=== PATIENT | male | born 1960 | race African-American/Black ===

== ENCOUNTER 2017-01-02 17:22 | Emergency (ER) | payer OTHER, MEDICAID ==
[~2017-01-02] VITALS: Ht 165.1 cm; Wt 111.1 kg
[~2017-01-02 17:22] MED LIST: AMLODIPIN; ASPIR 8181 M1 PO; ASPIRIN; AUGMENTIN 875 M1 TAB PO; BACTRIM DS 800/1 TAB PO; ENALAPRIL; ENALAPRIL10 M1 PO; FLEXERIL10 MG PO; HUMALOG PEN100 U/ML SC; INVOKANA300 MG PO; LANTUS INSULIN; LANTUS100 U/ML SC; LASIX; LASIX20 M1 PO; LOPRESSOR; METFORMIN; METFORMIN HCL1000 MG PO; METOPROLOL SUCC PO; NORVASC10 M1 PO; REGLAN10 MG PO; RESTASIS0.05% OP; SIMVASTATIN; SIMVASTATIN80 MG PO; SYSTANE LUBRICAN5 ML OP; TRAMADOL HYDROC50 MG PO; VICTOZA6 MG/ML SUBQ; ZOFRAN4 M1 PO
[2017-01-02 18:24] VITALS: BP 136/76
--- NOTE | 2017-01-02 18:55 | NUR ---
PATIENT PRESENTS TO ED WITH RIGHT FLANK PAIN RADIATING LOWER BACK PAIN . PT STATES POLYURIA . DENIES N/V/D; SKIN IS PINK/WARM/DRY; AAOX4 WITH EVEN AND STEADY GAIT; LUNGS CLEAR BL; HR EVEN AND REGULAR; PT DENIES ANY FEVER, CP, SOB, OR COUGH AT THIS TIME; PATIENT STATES PAIN OF 10/10 AT THIS TIME; VSS; PATIENT POSITIONED FOR COMFORT; HOB ELEVATED; BEDRAILS UP X2; BED DOWN. ER MD MADE AWARE OF PT STATUS.
[2017-01-02] MEDS ORDERED: KETOROLAC 60 MG/2 ML VIAL IM ONE ×4 (19:00→19:50)
--- NOTE | 2017-01-02 19:20 | NUR ---
RECEIVED REPORT FROM AM NURSE. PT STABLE NO S/S OF DISTRESS NOTED AT THIS MOMENT.
[2017-01-02 20:13] VITALS: BP 128/78
--- NOTE | 2017-01-02 20:13 | NUR ---
Patient discharged with v/s stable. Written and verbal after care instructions given and explained. Patient alert, oriented and verbalized understanding of instructions. Ambulatory with steady gait. All questions addressed prior to discharge. ID band removed. Patient advised to follow up with PMD OR RETURN TO ER IF CONDITION GETS WORSE. Rx of NORCO, AND SOMA given. Patient educated on indication of medication including possible reaction and side effects. Opportunity to ask questions provided and answered.
== END 2017-01-02 20:13 | disposition home or self-care (01) ==
LOC: MED 17:22
DX: M54.31 Sciatica, right side (principal); M54.6 Pain in thoracic spine; E11.9 Type 2 diabetes mellitus without complications; I10 Essential (primary) hypertension; Z79.82 Long term (current) use of aspirin; Z79.4 Long term (current) use of insulin; Z79.899 Other long term (current) drug therapy
CPT/HCPCS: 81002; 82948; 96372; 99283; J1885

== ENCOUNTER 2017-03-21 18:45 | Emergency (ER) | payer OTHER, MEDICAID ==
[~2017-03-21] VITALS: Ht 165.1 cm; Wt 108.4 kg
[~2017-03-21 18:45] MED LIST changes: -AMLODIPIN; +ASPI81EC98 PO; -ASPIR 8181 M1 PO; -ASPIRIN; -AUGMENTIN 875 M1 TAB PO; -BACTRIM DS 800/1 TAB PO; +CANA300T PO; +CYCL-405 PO; +ENAL10TA41 PO; -ENALAPRIL; -ENALAPRIL10 M1 PO; -FLEXERIL10 MG PO; -HUMALOG PEN100 U/ML SC; -INVOKANA300 MG PO; -LANTUS INSULIN; -LANTUS100 U/ML SC; -LASIX; -LASIX20 M1 PO; +LIRA6SOL SUBQ; -LOPRESSOR; +METF10002 PO; -METFORMIN; -METFORMIN HCL1000 MG PO; +METO-460 PO; -METOPROLOL SUCC PO; -NORVASC10 M1 PO; +ONDA4TAB PO; -REGLAN10 MG PO; -RESTASIS0.05% OP; -SIMVASTATIN; -SIMVASTATIN80 MG PO; -SYSTANE LUBRICAN5 ML OP; -TRAMADOL HYDROC50 MG PO; -VICTOZA6 MG/ML SUBQ; -ZOFRAN4 M1 PO; +[UNRECOGNIZED DRUG - CODE] SC
[2017-03-21 18:48] VITALS: BP 120/75
--- NOTE | 2017-03-21 19:02 | NUR ---
Patient ambulated to bed 6. RN evaluating patient at bedside.
--- NOTE | 2017-03-21 19:19 | NUR ---
56Y M BIB FAMILY C/O VOMIT X 6 DAYS. PT STATES HE CANNOT KEEP ANYTHING DOWN. AB IS TENDER ON TOUCH WITH C/O OF NAUSEA, NO DIARRHEA. 6/10 PAIN. HX DM AND NKA
[2017-03-21] MEDS ORDERED: NACL 0.9% 1,000 ML IV ONE (19:28)
[2017-03-21] MEDS ORDERED: ONDANSETRON 4 MG/2 ML VIAL IVP ONE (19:30)
[2017-03-21 20:19] LABS: ALBUMIN 3.8 g/dL (3.4-5.0); ANION GAP 9.9 (8-16); CARBON DIOXIDE 30.8 mmol/L (21-32); CREATININE 0.9 mg/dL (0.6-1.3); POTASSIUM 3.7 mmol/L (3.5-5.1); TOTAL BILIRUBIN 0.4 mg/dL (0.0-1.0); TOTAL PROTEIN, SERUM 7.3 g/dL (6.4-8.2)
--- NOTE | 2017-03-21 20:41 | NUR ---
IV removed, catheter intact and site benign. Applied folded 4x4 gauze and tape to stop bleeding.
[2017-03-21 20:47] VITALS: BP 122/76
--- NOTE | 2017-03-21 20:47 | NUR ---
Patient discharged with v/s stable. Written and verbal after care instructions given and explained. Patient alert, oriented and verbalized understanding of instructions. Ambulatory with steady gait. All questions addressed prior to discharge. ID band removed. Patient advised to follow up with PMD. Rx of BENTYL 20MG AND ZOFRAN 4MG ODT given. Patient educated on indication of medication including possible reaction and side effects. Opportunity to ask questions provided and answered.
== END 2017-03-21 20:47 | disposition home or self-care (01) ==
LOC: MED 18:45
DX: R11.2 Nausea with vomiting, unspecified (principal); R19.7 Diarrhea, unspecified; R10.13 Epigastric pain; E11.9 Type 2 diabetes mellitus without complications
CPT/HCPCS: 36415; 80053; 82948; 83690; 96361; 96374; 99284; J2405; J7030

== ENCOUNTER 2018-11-05 09:06 | Emergency (ER) | payer OTHER, MEDICAID ==
[~2018-11-05] VITALS: Ht 165.1 cm; Wt 104.8 kg
[~2018-11-05 09:06] MED LIST changes: +ENAL10TA21 PO; -ENAL10TA41 PO; -METF10002 PO; +[UNRECOGNIZED DRUG - CODE] PO
[2018-11-05 09:23] VITALS: BP 133/82
--- NOTE | 2018-11-05 09:33 | NUR ---
PT AMBULATES TO BED 1
--- NOTE | 2018-11-05 09:40 | NUR ---
PT. CAME INTO THE ED W/ C/O EXACERBATED RIGHT SIDED LOWER BACK PAIN X 3 DAYS DENIES RECENT INJURY--DENIES INCONTINENCE ---HAS BEEN APPLYING HEATING CREAM ONTO SITE WITH MINIMAL RELIEF. 08/22 SHARP CONSTANT PAIN IN R LOWER BACK THAT IS NON RADIAITING. ER MADE AWARE. WILL CONTINUE TO MONITOR. SON AT BEDSIDE. SAFETY PRECAUTIONS IN PLACE
[2018-11-05] MEDS ORDERED: MORPHINE SULFATE 4 MG/ML SYR IM ONE (10:40)
[2018-11-05 11:11] VITALS: BP 133/82
--- NOTE | 2018-11-05 11:12 | NUR ---
Patient discharged with v/s stable. Written and verbal after care instructions given and explained. Patient verbalized understanding. Ambulatory with steady gait. All questions addressed prior to discharge. Advised to follow up with PMD.
== END 2018-11-05 11:07 | disposition home or self-care (01) ==
LOC: MED 09:06
DX: M54.41 Lumbago with sciatica, right side (principal); E11.9 Type 2 diabetes mellitus without complications; I10 Essential (primary) hypertension; Z79.82 Long term (current) use of aspirin; Z79.899 Other long term (current) drug therapy
CPT/HCPCS: 82948; 96372; 99283; J2270

== ENCOUNTER 2019-06-13 08:20 | Emergency (ER) | payer OTHER, MEDICAID ==
[~2019-06-13] VITALS: Ht 172.7 cm; Wt 105.2 kg
[~2019-06-13 08:20] MED LIST changes: -ENAL10TA21 PO; +METF-1022 PO; +VAS10 PO; -[UNRECOGNIZED DRUG - CODE] PO
[2019-06-13 08:24] VITALS: BP 130/76
--- NOTE | 2019-06-13 08:28 | NUR ---
PT AMB TO BED 4 WITH STEADY GAIT
[2019-06-13] MEDS ORDERED: KETOROLAC 60 MG/2 ML VIAL IM ONE (08:40)
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
[2019-06-13 09:20] VITALS: BP 125/71
== END 2019-06-13 09:20 | disposition home or self-care (01) ==
LOC: MED 08:20
DX: R07.89 Other chest pain (principal); E11.9 Type 2 diabetes mellitus without complications; I10 Essential (primary) hypertension; F12.10 Cannabis abuse, uncomplicated; Z98.890 Other specified postprocedural states; Z79.84 Long term (current) use of oral hypoglycemic drugs; Z79.82 Long term (current) use of aspirin; Z79.899 Other long term (current) drug therapy
CPT/HCPCS: 93005; 96372; 99283; J1885

== ENCOUNTER 2020-08-19 05:55 | Emergency (ER) | payer OTHER, MEDICAID ==
[~2020-08-19] VITALS: Ht 165.1 cm; Wt 104.3 kg
[2020-08-19 06:09] VITALS: BP 128/71
--- NOTE | 2020-08-19 06:11 | NUR ---
To ED bed 01
--- NOTE | 2020-08-19 06:15 | NUR ---
PT HAS HAD N/V SINCE MONDAY. HAS MULITIPLE EPISODES OF VOMITING DAILY, WHENEVER HE EATS SOMETHING IT COMES RIGHT BACK UP. DENIES DIARRHEA, AFEBRILE, NO ABD PAIN. DENIES SOB. BED IN LOWEAT POSITION AND SIDERAIL UP X 1. PT ON BEDSIDE MONITOR. JOSE HX - DM
--- NOTE | 2020-08-19 06:18 | NUR ---
Dr. Phelps assessing pt.
[2020-08-19] MEDS: ONDANSETRON 4 MG/2 ML VIAL IVP ONE (06:43)
[2020-08-19] MEDS: NACL 0.9% 1,000 ML IV ONE (06:43)
[2020-08-19] MEDS: FAMOTIDINE 20 MG/2 ML VIAL IVP ONE (06:44)
--- NOTE | 2020-08-19 07:25 | NUR ---
Dr. Jesus is evaluating the patient at bedside.
--- NOTE | 2020-08-19 07:26 | NUR ---
Jozef benedict in [place] - 08/19/20 at 0731 by [email or web address] REPORT GIVEN TO YOLA KATZ
--- NOTE | 2020-08-19 07:31 | NUR ---
REPORT GIVEN TO ALISA KATZ FOR CONTINUATION OF CARE
[2020-08-19 07:56] LABS: HEMOGLOBIN 14.2 g/dL (12.0-18.0)
[2020-08-19 08:00] VITALS: BP 126/68
--- NOTE | 2020-08-19 08:01 | NUR ---
Patient discharged with v/s stable. Written and verbal after care instructions given and explained. Patient alert, oriented and verbalized understanding of instructions. Ambulatory with steady gait. All questions addressed prior to discharge. ID band removed. Patient advised to follow up with PMD. Rx of zofran,pepcid given. Patient educated on indication of medication including possible reaction and side effects. Opportunity to ask questions provided and answered.
[2020-08-19 08:09] LABS: BASOPHILS # (AUTO) 0.1 K/uL (0.00-0.22); BASOPHILS % (AUTO) 1.1 % (0.0-2.0); EOSINOPHILS # (AUTO) 0.1 K/uL (0-0.4); HEMATOCRIT 42.7 % (36-52); LYMPHOCYTES # (AUTO) 1.2 K/uL (2.0-11.5); LYMPHOCYTES % (AUTO) 13.2 % (20.5-51.1); MEAN CORPUSCULAR HEMOGLOBIN 28 pg (27-31); MEAN CORPUSCULAR HGB CONC 33 g/dL (33-37); MONOCYTES # (AUTO) 0.6 K/uL (0.8-1.0); MONOCYTES % (AUTO) 7.2 % (1.7-9.3); NEUTROPHILS # (AUTO) 6.9 K/uL (1.8-7.7); NEUTROPHILS % (AUTO) 77.5 % (42.2-75.2); PLATELET COUNT (AUTO) 207 K/uL (140-450); RED BLOOD CELL COUNT(AUTO) 5.08 MIL/uL (4.20-6.10); RED CELL DISTRIBUTION WIDTH 15.7 % (11.6-13.7); WHITE BLOOD COUNT (AUTO) 8.9 K/uL (4.8-10.8)
[2020-08-19 08:18] LABS: ALBUMIN 3.6 g/dL (3.4-5.0); ANION GAP 14.3 (8-16); CARBON DIOXIDE 26.6 mmol/L (21-32); CREATININE 0.7 mg/dL (0.6-1.3); POTASSIUM 3.9 mmol/L (3.5-5.1); TOTAL BILIRUBIN 0.3 mg/dL (0.0-1.0)
== END 2020-08-19 08:01 | disposition home or self-care (01) ==
LOC: MED 05:55
DX: K29.70 Gastritis, unspecified, without bleeding (principal); E11.9 Type 2 diabetes mellitus without complications; Z79.899 Other long term (current) drug therapy
CPT/HCPCS: 36415; 80053; 82948; 83690; 85025; 93005; 96361; 96374; 96375; 99284; J2405; J3490; J7030

== ENCOUNTER 2020-08-26 06:07 | Emergency (ER) | payer OTHER, MEDICAID ==
[~2020-08-26] VITALS: Ht 165.1 cm; Wt 104.3 kg
[2020-08-26 06:10] VITALS: BP 121/63
--- NOTE | 2020-08-26 06:16 | NUR ---
PT TAKEN TO BED 4
--- NOTE | 2020-08-26 06:18 | NUR ---
Dr. Snow examining patient.
--- NOTE | 2020-08-26 06:19 | NUR ---
59 Y/O MALE PRESENTS TO ER WITH C/O BURNING EPIGASTRIC PAIN X 1 WEEK. 9/10 PAIN. PT STATES EVERY TIME HE SWALLOWS, RELUX FOLLOWS. LAST VOMIT WAS 08/25/20 @ 2300. DENIES NAUSEA, DIARRHEA, SOB, COUGH. A&O X4, VSS, R/R EQUAL, AND UNLABORED, VSS. SIDE RAIL X1, BED IN LOW POSITION, WILL CONTINUE TO MONITOR. NKDA PMH: CIERRA
[2020-08-26] MEDS ORDERED: ALUMINUM HYD/MAG/SIMETHICONE 30 ML UDC PO ONE (06:25)
[2020-08-26] MEDS ORDERED: LIDOCAINE VISCOUS 2% 20 ML UDC PO ONE (06:25)
[2020-08-26] MEDS ORDERED: PANTOPRAZOLE 40 MG TABEC PO ONE (06:25)
[2020-08-26] MEDS ORDERED: DICYCLOMINE HCL LIQUID 10 MG/5 ML UDC PO ONE (06:25)
[2020-08-26 07:07] VITALS: BP 121/63
--- NOTE | 2020-08-26 07:08 | NUR ---
Patient discharged with v/s stable. Written and verbal after care instructions given and explained. Patient alert, oriented and verbalized understanding of instructions. Ambulatory with steady gait. All questions addressed prior to discharge. ID band removed. Patient advised to follow up with PMD. Rx of PROTONIX given. Patient educated on indication of medication including possible reaction and side effects. Opportunity to ask questions provided and answered.
== END 2020-08-26 07:08 | disposition home or self-care (01) ==
LOC: MED 06:07
DX: K21.9 Gastro-esophageal reflux disease without esophagitis (principal); E11.9 Type 2 diabetes mellitus without complications; I10 Essential (primary) hypertension; Z79.899 Other long term (current) drug therapy
CPT/HCPCS: 93005; 99283; 99284

== ENCOUNTER 2021-01-17 20:16 | Emergency (ER) | payer OTHER, MEDICAID ==
[~2021-01-17] VITALS: Ht 165.1 cm; Wt 102.1 kg
[2021-01-17 20:19] VITALS: BP 167/90
[2021-01-17] MEDS ORDERED: ASPIRIN 325 MG TAB PO ONE (21:05)
[2021-01-17 21:23] LABS: BASOPHILS # (AUTO) 0.1 K/uL (0.00-0.22); BASOPHILS % (AUTO) 1.1 % (0.0-2.0); EOSINOPHILS # (AUTO) 0.2 K/uL (0-0.4); EOSINOPHILS % (AUTO) 1.9 % (0.0-4.0); HEMOGLOBIN 13.4 g/dL (12.0-18.0); LYMPHOCYTES # (AUTO) 1.9 K/uL (2.0-11.5); LYMPHOCYTES % (AUTO) 19.2 % (20.5-51.1); MEAN CORPUSCULAR HEMOGLOBIN 28 pg (27-31); MEAN CORPUSCULAR HGB CONC 33 g/dL (33-37); MEAN CORPUSCULAR VOLUME 85.2 fL (80-94); MONOCYTES # (AUTO) 0.5 K/uL (0.8-1.0); MONOCYTES % (AUTO) 5.5 % (1.7-9.3); NEUTROPHILS % (AUTO) 72.3 % (42.2-75.2); PLATELET COUNT (AUTO) 237 K/uL (140-450); RED BLOOD CELL COUNT(AUTO) 4.81 MIL/uL (4.20-6.10); RED CELL DISTRIBUTION WIDTH 15.5 % (11.6-13.7); WHITE BLOOD COUNT (AUTO) 9.7 K/uL (4.8-10.8)
[2021-01-17 21:30] LABS: ANION GAP 12.8 (8-16); CARBON DIOXIDE 26.3 mmol/L (21-32); CREATININE 0.6 mg/dL (0.6-1.3); POTASSIUM 4.1 mmol/L (3.5-5.1)
[2021-01-18 00:30] VITALS: BP 156/88
== END 2021-01-18 00:30 | disposition home or self-care (01) ==
LOC: MED 20:16
DX: R07.89 Other chest pain (principal); Z20.822 Contact with and (suspected) exposure to COVID-19; E11.9 Type 2 diabetes mellitus without complications; I10 Essential (primary) hypertension; Z79.84 Long term (current) use of oral hypoglycemic drugs; Z79.82 Long term (current) use of aspirin; Z79.899 Other long term (current) drug therapy
CPT/HCPCS: 36415; 71045; 80048; 84484; 85025; 93005; 99285

== ENCOUNTER 2021-06-15 08:04 | Emergency (ER) | payer OTHER, MEDICAID ==
[~2021-06-15] VITALS: Ht 165.1 cm; Wt 104.3 kg
[~2021-06-15 08:04] MED LIST changes: -CYCL-405 PO; +CYCL-711 PO
--- NOTE | 2021-06-15 09:54 | NUR ---
ambulated to chair c
--- NOTE | 2021-06-15 10:01 | NUR ---
DR SAHU EVALUATING PT
[2021-06-15] MEDS ORDERED: ACETAMINOPHEN EXTRA STRENGTH 500 MG TAB PO ONE (10:05)
[2021-06-15] MEDS ORDERED: KETOROLAC 30 MG/ML VIAL IM ONE (10:05)
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
[2021-06-15] MEDS ORDERED: METH4TAB27 PO (10:51)
[2021-06-15] MEDS ORDERED: ACET-10509 PO (10:51)
--- NOTE | 2021-06-15 10:59 | NUR ---
Patient discharged with v/s stable. Written and verbal after care instructions FOR SCIATICA given and explained. Patient alert, oriented and verbalized understanding of instructions. Ambulatory with steady gait. All questions addressed prior to discharge. ID band removed. Patient advised to follow up with PMD. Rx of METHYLPRENISOLONE AND TYLENOL EXTRA STRENGTH given. Patient educated on indication of medication including possible reaction and side effects. Opportunity to ask questions provided and answered.
== END 2021-06-15 10:55 | disposition home or self-care (01) ==
LOC: MED 08:04
DX: M54.41 Lumbago with sciatica, right side (principal); E11.9 Type 2 diabetes mellitus without complications; I10 Essential (primary) hypertension; Z79.899 Other long term (current) drug therapy; Z79.84 Long term (current) use of oral hypoglycemic drugs; Z79.82 Long term (current) use of aspirin
CPT/HCPCS: 81002; 96372; 99283; J1885; 81025

== ENCOUNTER 2022-10-17 06:53 | Emergency (ER) | payer OTHER, MEDICAID ==
[~2022-10-17] VITALS: Ht 165.1 cm; Wt 107.7 kg
[~2022-10-17 06:53] MED LIST changes: +ACET-10509 PO; -METF-1022 PO; +METF-1253 PO; +METH4TAB27 PO
[2022-10-17 07:02] VITALS: BP 150/80
--- NOTE | 2022-10-17 07:05 | NUR ---
to lobby a/w bed ambulatory
--- NOTE | 2022-10-17 09:02 | NUR ---
62/M PRESENTS TO ED WITH C/O LEFT ANKLE AND FOOT PAIN X3 WEEKS. PATIENT DENIES RECENT INJURY OR TRAUMA, PATIENT AMBULATORY WITH USE OF PERSONAL CANE.
--- NOTE | 2022-10-17 09:20 | NUR ---
Patient discharged with v/s stable. Written and verbal after care instructions ABOUT ARTHRITIS given and explained. Patient verbalized understanding. Ambulatory with steady gait. All questions addressed prior to discharge. Advised to follow up with PMD.
== END 2022-10-17 09:10 | disposition home or self-care (01) ==
LOC: MED 06:53
DX: M25.572 Pain in left ankle and joints of left foot (principal); I10 Essential (primary) hypertension; E11.9 Type 2 diabetes mellitus without complications; Z79.4 Long term (current) use of insulin; Z79.899 Other long term (current) drug therapy
CPT/HCPCS: 73610; 99283

== ENCOUNTER 2022-11-28 14:48 | Emergency (ER) | payer OTHER, MEDICAID ==
[~2022-11-28] VITALS: Ht 165.1 cm; Wt 110.2 kg
[2022-11-28 14:59] VITALS: BP 160/77
[2022-11-28] MEDS ORDERED: OFLOS OP (16:13)
[2022-11-28 16:23] VITALS: BP 144/75
--- NOTE | 2022-11-28 16:23 | NUR ---
Patient discharged with v/s stable. Written and verbal after care instructions given. Patient alert, oriented and verbalized understanding of instructions. Ambulatory with steady gait. All questions addressed prior to discharge. ID band removed. Patient advised to follow up with PMD. Rx of ofloxacin given. Opportunity to ask questions provided and answered.
--- NOTE | 2022-11-28 16:30 | NUR ---
The patient's care was reviewed and supervised by ALLISON BERKOWITZ RN, RN.
== END 2022-11-28 16:23 | disposition home or self-care (01) ==
LOC: MED 14:48
DX: H10.9 Unspecified conjunctivitis (principal); J06.9 Acute upper respiratory infection, unspecified
CPT/HCPCS: 99283

== ENCOUNTER 2023-02-07 08:11 | Emergency (ER) | payer OTHER, MEDICAID ==
[~2023-02-07] VITALS: Ht 165.1 cm; Wt 106.6 kg
[~2023-02-07 08:11] MED LIST changes: +OFLOS OP
[2023-02-07 08:17] VITALS: BP 150/86
--- NOTE | 2023-02-07 08:55 | NUR ---
62YO MALE PT C/O COUGH XYESTERDAY. STATES CHEST PAIN ON COUGH. DRY COUGH PRESENT. REPORTS FEVER OF 100.0 W/ RELIEF AFTER TYLENOL. CLEAR KIKI LUNG SOUNDS. RESPIRATIONS EVEN AND UNLABORED. DENIES N/V/D, CHILLS , CHEST PAIN OR SOB. +SON SICK AT HOME. PT AAOX4, SITTING BEDSIDE. HX: DIABETES NKA
--- NOTE | 2023-02-07 09:07 | NUR ---
pt swabbed for covid(ariela) and flu. walked /handed to lab
--- NOTE | 2023-02-07 09:10 | NUR ---
Patient discharged with v/s stable. Written and verbal after care instructions FOR VIRAL ILLNESS given and explained. Patient verbalized understanding. Ambulatory with steady gait. All questions addressed prior to discharge. Advised to follow up with PMD.
[2023-02-07] MEDS ORDERED: MUC600 PO (09:12)
[2023-02-07] MEDS ORDERED: LORA1T1237 PO (09:12)
--- NOTE | 2023-02-07 09:12 | NUR ---
The patient's care was reviewed and supervised by Nicole Lemons RN.
[2023-02-07] MEDS ORDERED: NIRM1TAB PO (10:44)
== END 2023-02-07 09:10 | disposition home or self-care (01) ==
LOC: MED 08:11
DX: U07.1 COVID-19 (principal); B34.9 Viral infection, unspecified; E11.9 Type 2 diabetes mellitus without complications; I10 Essential (primary) hypertension; F12.90 Cannabis use, unspecified, uncomplicated; Z79.899 Other long term (current) drug therapy; Z79.2 Long term (current) use of antibiotics; Z79.4 Long term (current) use of insulin; Z79.82 Long term (current) use of aspirin
CPT/HCPCS: 99283

== ENCOUNTER 2024-04-02 07:42 | Emergency (ER) | payer MEDICAID, OTHER ==
[~2024-04-02] VITALS: Ht 165.1 cm; Wt 64.4 kg
[~2024-04-02 07:42] MED LIST changes: +LORA1T1237 PO; +MUC600 PO; +NIRM1TAB PO
[2024-04-02 07:55] VITALS: BP 131/75; PULSE 91; RESP 18; TEMP 97.1; O2SAT 96
[2024-04-02] MEDS ORDERED: BENZ150C7 PO (08:43)
[2024-04-02] MEDS ORDERED: AZIT250T4 PO (08:45)
[2024-04-02] MEDS ORDERED: AMOX500C25 PO (08:45)
[2024-04-02 08:49] LABS: FLU A ANTIGEN negative (NEGATIVE); FLU B ANTIGEN negative (NEGATIVE)
[2024-04-02 09:03] VITALS: BP 128/75; PULSE 88; RESP 18; TEMP 98; O2SAT 99
== END 2024-04-02 09:03 | disposition home or self-care (01) ==
LOC: MED 07:42
DX: J20.9 Acute bronchitis, unspecified (principal); E11.9 Type 2 diabetes mellitus without complications; I10 Essential (primary) hypertension; Z20.822 Contact with and (suspected) exposure to COVID-19; Z79.84 Long term (current) use of oral hypoglycemic drugs; Z79.4 Long term (current) use of insulin; Z79.899 Other long term (current) drug therapy; Z79.2 Long term (current) use of antibiotics
CPT/HCPCS: 71045; 99284

== ENCOUNTER 2024-05-30 06:59 | Emergency (ER) | payer OTHER ==
[~2024-05-30] VITALS: Ht 165.1 cm; Wt 101.2 kg
[~2024-05-30 06:59] MED LIST changes: +AMOX500C25 PO; +AZIT250T4 PO; +BENZ150C7 PO
[2024-05-30 07:04] VITALS: BP 126/69; PULSE 83; RESP 16; TEMP 97.4; O2SAT 98
[2024-05-30] MEDS ORDERED: AZIT250T4 PO (08:19)
[2024-05-30] MEDS ORDERED: AMOX1TAB8 PO (08:19)
[2024-05-30] MEDS ORDERED: DEXT15EL PO (08:19)
[2024-05-30 08:32] VITALS: BP 126/69; PULSE 83; RESP 16; TEMP 97.4; O2SAT 96
== END 2024-05-30 08:32 | disposition home or self-care (01) ==
LOC: MED 06:59
DX: J40 Bronchitis, not specified as acute or chronic (principal); E11.9 Type 2 diabetes mellitus without complications; I10 Essential (primary) hypertension; Z79.899 Other long term (current) drug therapy; Z79.4 Long term (current) use of insulin; Z79.82 Long term (current) use of aspirin
CPT/HCPCS: 71046; 99283

== ENCOUNTER 2024-08-18 07:28 | Emergency (ER) | payer OTHER ==
[~2024-08-18] VITALS: Ht 165.1 cm; Wt 100.2 kg
[~2024-08-18 07:28] MED LIST changes: -ACET-10509 PO; +ACET500T99 PO; +AMOX1TAB8 PO; +DEXT15EL PO
[2024-08-18 07:41] VITALS: BP 111/63; PULSE 80; RESP 21; TEMP 97.2; O2SAT 96
[2024-08-18] MEDS: IPRATROPIUM 0.02% 0.5 MG/2.5 ML NEBU INH ONE (09:10)
[2024-08-18] MEDS: ALBUTEROL 0.083% 2.5 MG/3 ML NEBU INH ONE (09:10)
[2024-08-18 09:13] VITALS: PULSE 79; RESP 14; O2SAT 96
[2024-08-18 09:16] LABS: BASOPHILS # (AUTO) 0.1 K/uL (0.00-0.22); BASOPHILS % (AUTO) 0.8 % (0.0-2.0); EOSINOPHILS # (AUTO) 0.4 K/uL (0-0.4); EOSINOPHILS % (AUTO) 5.5 % (0.0-4.0); HEMATOCRIT 42.1 % (36-52); LYMPHOCYTES # (AUTO) 0.9 K/uL (2.0-11.5); LYMPHOCYTES % (AUTO) 13.7 % (20.5-51.1); MEAN CORPUSCULAR HEMOGLOBIN 29 pg (27-31); MEAN CORPUSCULAR HGB CONC 33 g/dL (33-37); MEAN CORPUSCULAR VOLUME 86.2 fL (80-94); MONOCYTES # (AUTO) 0.9 K/uL (0.8-1.0); MONOCYTES % (AUTO) 13.2 % (1.7-9.3); NEUTROPHILS # (AUTO) 4.4 K/uL (1.8-7.7); NEUTROPHILS % (AUTO) 66.8 % (42.2-75.2); PLATELET COUNT (AUTO) 203 K/uL (140-450); RED BLOOD CELL COUNT(AUTO) 4.88 MIL/uL (4.20-6.10); RED CELL DISTRIBUTION WIDTH 15.7 % (11.6-13.7); WHITE BLOOD COUNT (AUTO) 6.6 K/uL (4.8-10.8)
[2024-08-18 09:30] LABS: ANION GAP 9.6 (8-16); CALCIUM 9.1 mg/dL (8.5-10.1); CARBON DIOXIDE 30.9 mmol/L (21-32); POTASSIUM 3.5 mmol/L (3.5-5.1)
[2024-08-18] MEDS ORDERED: PRED20TA5 PO (09:51)
== END 2024-08-18 10:01 | disposition home or self-care (01) ==
LOC: MED 07:28
DX: J40 Bronchitis, not specified as acute or chronic (principal); E11.9 Type 2 diabetes mellitus without complications; I10 Essential (primary) hypertension; Z79.84 Long term (current) use of oral hypoglycemic drugs; Z79.4 Long term (current) use of insulin; Z79.899 Other long term (current) drug therapy
CPT/HCPCS: 36415; 71045; 80048; 85025; 94640; 99284; J7613; J7644